=== PATIENT | male | born 1980 | race Caucasian/White ===

== ENCOUNTER → 2018-02-01 | Outpatient (CLI) | payer OTHER ==
[~2018-02-01] MED LIST: GADOBENATE DIMEGLUMINE 0 ML IV ONE
--- NOTE | 2018-02-01 12:05 | Diagnostic Imaging Report ---
MRI of the left hand without contrast. History: Localized swelling. Mass on left pinky. Technique: Axial T1, axial PD with fat-sat and coronal T1 imaging of the hand without contrast. The patient was unable to complete the remainder of the MRI sequences due to pain. Findings: There is no acute fracture, dislocation or evidence of avascular necrosis. Minimal scattered degenerative changes are seen. The visualized muscles are normal in size, signal intensity and morphology. No ligamentous or tendon tear is seen. The visualized neurovascular bundles are intact. 1.5 x 1.0 x 0.5 cm heterogeneous signal intensity mass immediately deep to the skin surface at the level of the proximal palmar portion of the middle phalanx of the fifth finger slightly on the radial side of the finger. This mass demonstrates decreased signal intensity on the PD fat saturated images and abuts the underlying flexor tendon. This is best seen on series 2 image 23 and series 4 image 13. No underlying cortical destruction is seen. 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 Tissue diagnosis/excision is recommended. The patient was unable to complete the remainder of the MRI sequences due to pain. Signed by: Dr. Toni White M.D. on 02/01/2018 12:02 PM
== END ==
LOC: MRI 09:32 → EEVIPCON 10:00
PROVIDERS: ATTEND Specialist
DX: R22.32 Localized swelling, mass and lump, left upper limb (principal)